=== PATIENT | male | born 1960 | race Caucasian/White ===

== ENCOUNTER 2020-05-11 12:55 | Outpatient (CLI) | payer BC, SELFPAY ==
[2020-05-11 13:42] LABS: SARS-CoV-2 Ag Positive (Negative)
== END 2020-05-11 12:56 | disposition home or self-care (01) ==
LOC: CHSLAB 12:58
PROVIDERS: PCP Internal Medicine; Visit Provider Internal Medicine
DX: U07.1 COVID-19 (principal)
CPT/HCPCS: 87426; C9803

== ENCOUNTER 2023-07-16 10:35 | Outpatient (CLI) | payer BC, SELFPAY ==
--- NOTE | ~2023-07-16 | US_ITS ---
EXAMINATION: US soft tissue lower back DATE: 07/16/2023 10:49 INDICATION: Left lower back mass for 40 years. TECHNIQUE: Multiple grayscale and Doppler ultrasound images of the lower back were obtained. COMPARISON: None FINDINGS: In the left lower back, there is a 4.2 x 1.6 x 4.8 cm hypoechoic subcutaneous mass. IMPRESSION: 1. 4.8 cm subcutaneous mass in left lower back. This may be a benign mass such as peripheral nerve sh eath tumor or sebaceous cyst. Malignancy is less likely. Ultrasound-guided core needle biopsy is roland mmended. Reviewed, dictated and finalized at location E. IMPRESSION: 1. 4.8 cm subcutaneous mass in left lower back. This may be a benign mass such as peripheral nerve sheath tumor or sebaceous cyst. Malignancy is less likely. Ultrasound-guided core needle biopsy is recommended.
== END 2023-07-16 10:36 ==
LOC: MICIMG 10:37
PROVIDERS: PCP Internal Medicine; Visit Provider Internal Medicine
DX: R22.2 Localized swelling, mass and lump, trunk (principal)
CPT/HCPCS: 76705

== ENCOUNTER 2023-09-16 15:52 | Outpatient (CLI) | payer BC, SELFPAY ==
[2023-09-16 19:28] LABS: Anion Gap 10 mmol/L (4-12); Blood Urea Nitrogen 12 mg/dL (9-20); Calcium 9.3 mg/dL (8.4-10.2); Carbon Dioxide 27 mmol/L (22-30); Chloride 101 mmol/L (98-107); Estimated Glomerular Filt Rate > 60; Glucose 96 mg/dL (65-110); Potassium 3.8 mmol/L (3.4-5.0); Sodium 138 mmol/L (137-145)
== END 2023-09-16 15:53 | disposition home or self-care (01) ==
LOC: ANHGOSHLAB 15:53
PROVIDERS: PCP Internal Medicine; Visit Provider Anesthesiology
DX: E11.9 Type 2 diabetes mellitus without complications (principal)
CPT/HCPCS: 36415; 80048

== ENCOUNTER 2023-09-20 00:37 | Day surgery (SDC) | payer BC, SELFPAY ==
[2023-09-16 08:46] VITALS: BMI 40.5
--- NOTE | 2023-09-16 08:52 | PC.NURSE ---
Report to the Outpatient Waiting Room, entrance under the green pavilion located off [facility], at time _1130_ on date _[id number]_. Planned Procedure Time: _130pm_. Time changes happen often and if your time is changed the preop area will call you the afternoon before. - You and your visitor will be asked to self-screen and do not enter if you have any COVID symptoms. - A mask is optional within the hospital at this time. Patients may have clear liquids (water, carbonated beverages, clear teas, apple juice) until 3 hours prior to surgery with a maximum of 20 ounces. - No food from midnight until time of surgery Take the following medications with a SIP of water the morning of surgery: __Amlodipine DO NOT STOP ANY OF YOUR OTHER PRESCRIPTION MEDICATIONS PRIOR TO SURGERY ?EXCEPT THE FOLLOWING Medications to discontinue per physician None Date to take last dose Please no make-up, nail vietnamese, hairspray, perfume, deodorant, or body powder the day of surgery. No jewelry (including any body piercings) or valuables the day of surgery, leave them at home. Please take a shower or bath the night before, or the morning of, surgery with an antibacterial soap. Wear comfortable, loose fitting clothing. - Jewelry must be removed prior to entering the operating room. Rings and piercings that are not removed may be cut off. - The hospital will not accept responsibility for valuables. - Please leave all valuables, including medications, at home the day of surgery. If you are going home after surgery, a licensed driver wheelchair must drive you home. - NO public transportation without another adult if you receive anesthesia. - We recommend that an adult stay with you for 24 hours following discharge. - We also recommend that you do not drive, make important decision, drink alcoholic beverages, or take any drugs that were not prescribed by your health care provider for at least 24 hours after your discharge time. Follow any additional instructions given to you from your surgeon. If you or anyone in your household have experienced Covid symptoms in the past week, please notify your surgeon or the nurse liaison at the phone number below for possible testing. Telephone instructions given to _Ayo___and asked if any additional questions and then verbalized understanding. Patient advised to call surgeon office or pre surgery nurse liaison [phone] if any additional questions.
[2023-09-20] VITALS (8 sets, daily range): BP systolic 146–174; BP diastolic 73–94; PULSE 80–94; RESP 14–20; TEMP 36.2–36.3; O2SAT 96–100
[2023-09-20] MEDS: LACTATED RINGERS 1,000 ML 30 ML IV CONT (10:30)
[2023-09-20 10:31] LABS: Glucose Point of Care 158 mg/dl (65-105)
--- NOTE | 2023-09-20 11:48 | PM.IMHP ---
H&P: HPI History of Present Illness Date/Time: 09/20/23 11:48 Chief Complaint: Back and arm masses Narrative: 62 yo man presents for excision of back and arm masses. He reports no changes since last seen in office. Review of Systems Review of Systems: All systems reviewed & are unremarkable except as noted in HPI and below Constitutional: Constitutional: Denies chills, Denies fever(s), Denies headache(s) and Denies weight loss Eyes: Eyes: Denies change in vision ENT: Denies dizziness, Denies headache(s), Denies neck mass and Denies throat swelling Cardiovascular: Cardiovascular: Denies chest pain, Denies lightheadedness and Denies dyspnea Respiratory: Respiratory: Denies cough, Denies dyspnea and Denies wheezing Gastrointestinal: Gastrointestinal: Denies abdominal pain, Denies change in bowel habits, Denies nausea and Denies vomiting Genitourinary: Genitourinary: Denies hematuria and Denies dysuria Musculoskeletal: Musculoskeletal: Reports as per HPI Integumentary/Breasts: Skin/Breast: Reports as per HPI Neurologic: Denies dizziness and Denies headache(s) Allergic/Immunologic: Allergic/Immunologic: Denies throat swelling and Denies wheezing [facility] Past Medical History Medical History (Updated 08/09/23 @ 09:41 by Fanny Benavidez) Hyperlipidemia Type 2 diabetes mellitus Family History Family History (Updated 08/09/23 @ 09:16 by Rima Ordonez MA) Mother Diabetes mellitus Social History Social History (Updated 08/09/23 @ 09:16 by Rima Ordonez MA) Smoking packs per day: 1 Smoking cigarettes per day: 20.0 Years smoked: 30 Smoking pack-years: 30.00 Smoking status: Former smoker Tobacco type: cigarettes Smoking end date: 09/15/10 Alcohol intake: current Drinks per week: 12 Do You Feel Safe in your Home?: Yes Lack of Transportation: No Lack of Food: Never True Current Housing: I Have Housing Concerned About Future Housing: No Difficulty Paying Gas/Electric Bills: No Difficulty Paying for Meds: No Currently Unemployed: No Education: Trade/Vocational Certificate Difficulty w/ Childcare or Family Care: No Living arrangements: with family Spiritual care concerns: No Meds Home Medications and Allergies Home Medications Medication Instructions Recorded Confirmed Type amlodipine 5 mg tablet 5 mg PO DAILY 08/09/23 09/20/23 History atorvastatin 40 mg tablet 40 mg PO DAILY 08/09/23 09/16/23 History cetirizine 10 mg tablet 10 mg PO DAILY PRN Allergy Symptoms 08/09/23 09/16/23 History dulaglutide 4.5 mg/0.5 mL 4.5 mg subcut WEEKLY 08/09/23 09/16/23 History subcutaneous pen injector glimepiride 4 mg tablet 4 mg PO QAM 08/09/23 09/16/23 History losartan 50 mg-hydrochlorothiazide 1 tablet PO DAILY 08/09/23 09/16/23 History 12.5 mg tablet sildenafil 100 mg tablet 100 mg PO DAILY PRN Sexual Activity 08/09/23 09/16/23 History Allergies Allergy/AdvReac Type Severity Reaction Status Date / Time No Known Allergies Allergy Verified 09/20/23 10:38 Vital Signs Vital Signs - 24 hr 09/20/23 10:30 Temperature 36.3 C L Pulse Rate 85 Respiratory Rate 14 Blood Pressure 156/77 H Pulse Oximetry 98 Oxygen Delivery Room Air Exam Const: General: no acute distress and alert Orientation/consciousness: patient oriented x3 HENMT: Head: normocephalic and atraumatic Ears: hearing grossly normal bilaterally Face/Nose/Sinus: Normal nares present Mouth: Yes Normal oral and palatal mucosa present Eyes: Periorbital: periorbital findings normal Sclera: sclerae normal EOM: EOMs intact bilaterally Neck: Neck: normal visual inspection, no lymphadenopathy and trachea midline Chest: Chest palpation & inspection: normal inspection of the chest Resp: Effort & Inspection: normal respiratory effort Auscultation: clear to auscultation bilaterally Cardio: Jugular venous distension: no JVD Rate: regular rate Rhythm: regular rhythm Heart sounds:
--- NOTE | 2023-09-20 11:49 | WPDANESEPPF ---
Anes - Initial Pre Proc Eval Procedure: Operation Date: 09/20/23 12:00 Proposed Procedures p Excision of Left Back Mass and Left Arm Mass - Sanju Aponte DO Date/Time: 09/20/23 11:49 Surgeon: Sanju Aponte DO Pre Op Diagnosis: 5cm Lt Back Mass, 3cm, 1cm Left Arm Mass Patient Data Age: 62 Gender: M Height: 1.8 m Weight: 135 kg Last Vital Signs Temp 97.4 F L 09/20/23 10:30 Pulse 85 09/20/23 10:30 Resp 14 09/20/23 10:30 BP 156/77 H 09/20/23 10:30 Pulse Ox 98 09/20/23 10:30 O2 Del Method Room Air 09/20/23 10:30 Allergies Allergy/AdvReac Type Severity Reaction Status Date / Time No Known Allergies Allergy Verified 09/20/23 10:38 Home Medications Medication Instructions Recorded Confirmed Type amlodipine 5 mg tablet 5 mg PO DAILY 08/09/23 09/20/23 History atorvastatin 40 mg tablet 40 mg PO DAILY 08/09/23 09/16/23 History cetirizine 10 mg tablet 10 mg PO DAILY PRN Allergy Symptoms 08/09/23 09/16/23 History dulaglutide 4.5 mg/0.5 mL 4.5 mg subcut WEEKLY 08/09/23 09/16/23 History subcutaneous pen injector glimepiride 4 mg tablet 4 mg PO QAM 08/09/23 09/16/23 History losartan 50 mg-hydrochlorothiazide 1 tablet PO DAILY 08/09/23 09/16/23 History 12.5 mg tablet sildenafil 100 mg tablet 100 mg PO DAILY PRN Sexual Activity 08/09/23 09/16/23 History Laboratory Tests 09/20/23 10:27 POC Capillary Glucose 158 H mg/dl (65-105) Patient hx anesthesia problems: none Family hx anesthesia problems: none Results Review: All pre-operative results and documents have been reviewed as part of the pre-operative evaluation. [facility] Past Medical History Medical History Hyperlipidemia Type 2 diabetes mellitus Family History Family History Mother Diabetes mellitus Social History Social History Smoking packs per day: 1 Smoking cigarettes per day: 20.0 Years smoked: 30 Smoking pack-years: 30.00 Smoking status: Former smoker Tobacco type: cigarettes Smoking end date: 09/15/10 Alcohol intake: current Drinks per week: 12 Do You Feel Safe in your Home?: Yes Lack of Transportation: No Lack of Food: Never True Current Housing: I Have Housing Concerned About Future Housing: No Difficulty Paying Gas/Electric Bills: No Difficulty Paying for Meds: No Currently Unemployed: No Education: Trade/Vocational Certificate Difficulty w/ Childcare or Family Care: No Living arrangements: with family Spiritual care concerns: No Anes - Eval Final PreProcedure Day of Procedure 09/20/23 11:49 Patient weight: morbidly obese Heart: regular rate and rhythm Lungs: clear to auscultation Airway: Mallampati scale and special considerations (Pt has large chip on R upper incisor. ) Neurological: alert and oriented Last oral intake: >/= 8 hours ASA classification: III Emergent: no Anesthetic plan: proceed Anesthesia type and monitoring: general ETT and standard monitoring Results Review: All pre-operative results and documents have been reviewed as part of the pre-operative evaluation. HTN, hyperlipidemia, DM, (fsbs 158), suspect ROXI, pt apparently golfs, no cp or sob. Informed Consent: The patient's anesthetic plan and its attendant risks and benefits were discussed with the patient/family/POA. Questions were solicited and answers provided to the satisfaction of the patient/family/POA.
--- NOTE | 2023-09-20 11:51 | WPDHPUPDATE1 ---
History and Physical Update Update Date/Time: 09/20/23 11:51 History and Physical has been reviewed, including an updated exam of the patient. There are NO changes in the patient's condition. Risks, benefits, and alternatives have been discussed and questions answered. Patient agrees to proceed with procedure.
[2023-09-20] MEDS: LIDO 1%/EPINEPHRINE 1:100,000 50 ML VIAL INFILTRATE (12:27)
--- NOTE | 2023-09-20 13:10 | W.PM.PROC2 ---
Procedure Note - Detailed Date of Procedure 09/20/23 Pre-op Diagnosis Left back mass, left arm mass x2 Post-op Diagnosis Same (8 cm left back mass, 3 cm left arm mass, 1 cm left arm mass) Procedure Performed 1. Excision of 8 cm left back mass 2. Excision of 3 cm left arm mass 3. Excision of 1 cm left arm mass Surgeon Sanju Aponte, DO Anesthesia General and Local (1% lidocaine with epinephrine) Indications This is a 62-year-old man who presents with multiple masses. He noticed a lower back mass about 30+ years ago but more recently this has become slightly larger and it is causing some discomfort when he is leaning up against it. He also experienced 2 masses on his left shoulder region on the upper arm. He has had drainage from those masses in the past but denies any current infection or active drainage. The mass on the back was ultrasounded and this appeared to be a benign subcutaneous mass possibly a cyst or nerves sheath tumor. The masses on the shoulder appeared likely to be subcutaneous cyst. Discussions were made with the patient about treatment options and decision was made to proceed with excision of the left back mass and left arm mass x2. Findings Excision of 8 cm left back mass was performed. An elliptical incision was made to encompass any area involving the skin superficially. The mass was firm and wide margins were taken just in case this was a neoplasm. Total width of the mass was 8 cm with margins. Excision of the 3 cm and 1 cm left arm mass was performed. Each of these were excised separately with a separate incision. These appeared to be subcutaneous cysts. Both were completely excised and sent to the lab for pathology as well. The back mass was oriented with a short suture superior and long suture lateral. Description of Procedure Procedure as well as risks, benefits, and alternatives were discussed with the patient. Written consent was obtained and placed in chart prior to procedure. Patient was brought back to surgical suite. He was placed supine on operating table. Time-out was done to confirm patient and procedure. He was then intubated by the anesthesia department. He was then repositioned into right lateral decubitus position. His back and shoulder area were prepped and draped in sterile fashion using chlorhexidine prep. 1% lidocaine with epinephrine was infiltrated locally around each of the masses. An 8 cm elliptical incision was made on the left lower back mass transversely using a 15 blade scalpel. Electrocautery was then used for hemostasis and for dissection around the mass. A wide excision was performed to completely excised the mass. The mass was completely excised intact and then was oriented with sutures once excised. A short suture was placed superiorly and long suture laterally. The mass was then sent to the lab for pathology. The wound bed was then inspected. Hemostasis was achieved with electrocautery. The skin edges were then reapproximated using 3-0 nylon vertical mattress interrupted sutures. Bacitracin ointment was applied followed by 4 x 4 gauze and tape. I then moved my attention to the left upper arm masses. A 3 cm elliptical incision was made around the larger left upper arm mass using a 15 blade scalpel. The mass was sharply excised with the 15 blade scalpel and removed completely. Electrocautery was used for hemostasis. The skin edges were then reapproximated using 3-0 nylon simple interrupted sutures. A 1 cm elliptical incision was then made around the 1 cm left upper arm mass using a 15 blade scalpel. the mass was completely excised with the 15 blade scalpel and sent to the lab for pathology. Hemostasis was achieved with electrocautery. The skin edges were then reapproximated using 3-0 nylon simple interrupted sutures. Bacitracin ointment was then applied over each of these incisions followed by 4 x 4 gauze and Medipore tape. The patient was then awakened from anesthesia and t
[2023-09-20 13:29] LABS: Glucose Point of Care 112 mg/dl (65-105)
== END 2023-09-20 14:39 | disposition home or self-care (01) ==
PROVIDERS: PCP Internal Medicine; Visit Provider Surgery
PROC: (CPT 11406; principal; 2023-09-20 12:00)
DX: L72.0 Epidermal cyst (principal); E78.5 Hyperlipidemia, unspecified; E11.9 Type 2 diabetes mellitus without complications; Z87.891 Personal history of nicotine dependence
CPT/HCPCS: 11406; 11403; 11401; 82948; 88304; A9270; J2250; J2405; J2704; J3010; J7120

== ENCOUNTER 2023-10-06 15:59 | Emergency (ER) | payer BC, SELFPAY ==
--- NOTE | 2023-10-06 16:17 | ED.GENADULT ---
HPI - General Adult General Chief complaint: Skin/Abscess/Foreign Body Stated complaint: WOUND CHECK TO LOWER BACK Source: patient, RN notes reviewed and old records reviewed Mode of arrival: ambulatory Limitations: no limitations History of Present Illness HPI narrative: patient presents accompanied by his . Patient had surgery on lower back to excise the lesion. Followed with Dr. Alvarez on Saturday to have sutures removed. He was doing fine until this afternoon at approximately 3:30 a.m. when he went to play golf. The wound dehisced at the site of the Steri-Strips. Patient now has gaping wound, no active bleeding Related Data Home Medications Medication Instructions Recorded Confirmed amlodipine 5 mg tablet 5 mg PO DAILY 08/09/23 10/06/23 atorvastatin 40 mg tablet 40 mg PO DAILY 08/09/23 10/06/23 cetirizine 10 mg tablet 10 mg PO DAILY PRN Allergy Symptoms 08/09/23 10/06/23 dulaglutide 4.5 mg/0.5 mL 4.5 mg subcut WEEKLY 08/09/23 10/06/23 subcutaneous pen injector glimepiride 4 mg tablet 4 mg PO QAM 08/09/23 10/06/23 losartan 50 mg-hydrochlorothiazide 1 tablet PO DAILY 08/09/23 10/06/23 12.5 mg tablet sildenafil 100 mg tablet 100 mg PO DAILY PRN Sexual Activity 08/09/23 10/06/23 Allergies Allergy/AdvReac Type Severity Reaction Status Date / Time No Known Allergies Allergy Verified 10/06/23 16:09 Review of Systems Review of Systems: All systems reviewed & are unremarkable except as noted in HPI and below Constitutional: Constitutional: Reports no additional constitutional complaints ENT: Reports system reviewed and no additional complaints, except as documented Cardiovascular: Cardiovascular: Reports no additional cardiovascular complaints Respiratory: Respiratory: Reports no additional respiratory complaints Gastrointestinal: Gastrointestinal: Reports no additional gastrointestinal complaints Integumentary/Breasts: Comments: open surgical wound to lower back PMFSH Past Medical History Medical History Hyperlipidemia Type 2 diabetes mellitus Surgical History Surgical History H/O excision of mass 09/20/2023 - excision 8cm left back mass, excision 3cm left arm mass, and excision of 1cm left arm mass Family History Family History Mother Diabetes mellitus Social History Social History Smoking packs per day: 1 Smoking cigarettes per day: 20.0 Years smoked: 30 Smoking pack-years: 30.00 Smoking status: Former smoker Tobacco type: cigarettes Smoking end date: 09/15/10 Alcohol intake: current Drinks per week: 12 Do You Feel Safe in your Home?: Yes Lack of Transportation: No Lack of Food: Never True Current Housing: I Have Housing Concerned About Future Housing: No Difficulty Paying Gas/Electric Bills: No Difficulty Paying for Meds: No Currently Unemployed: No Education: Trade/Vocational Certificate Difficulty w/ Childcare or Family Care: No Living arrangements: with family Spiritual care concerns: No Comments At the time of my signature, I reviewed and agree with the nursing past medical, surgical, social, and family history. There is no relevant family history pertinent to the patient complaint. Exam Const: General: cooperative, no acute distress, alert and awake Orientation/consciousness: oriented to person, oriented to place and oriented to time HENMT: Head: normal to inspection Resp: Effort & Inspection: normal respiratory effort and able to speak in complete sentences Auscultation: clear to auscultation bilaterally, no crackles, no rales, no rhonchi and no wheezes Cardio: Palpation: normal PMI Rate: regular rate Rhythm: regular rhythm Heart sounds: S1 normal heart sound present and S2 normal heart sound pres
[2023-10-06 16:20] VITALS: BP 192/90; PULSE 104; RESP 16; TEMP 37.2; O2SAT 98
[2023-10-06 17:35] VITALS: BP 176/155
[2023-10-06 18:08] VITALS: BP 162/90
== END 2023-10-06 18:03 | disposition home or self-care (01) ==
PROVIDERS: Emergency Provider Nurse Practitioner Family; PCP Internal Medicine
DX: T81.31XA Disruption of external operation (surgical) wound, not elsewhere classified, initial encounter (principal); Z87.891 Personal history of nicotine dependence; E78.5 Hyperlipidemia, unspecified; E11.9 Type 2 diabetes mellitus without complications
CPT/HCPCS: 99212; G0463

== ENCOUNTER 2023-10-08 02:00 | Day surgery (SDC) | payer BC, SELFPAY ==
--- NOTE | 2023-10-07 13:30 | PC.NURSE ---
Report to the Outpatient Waiting Room, entrance under the green pavilion located off [facility], at time _1000__ on date 10/08/23_. Planned Procedure Time: . Time changes happen often and if your time is changed the preop area will call you the afternoon before. - You and your visitor will be asked to self-screen and do not enter if you have any COVID symptoms. - A mask is optional within the hospital at this time. Patients may EAT AND DRINK PRIOR TO ARRIVE. Take the following medications with a SIP of water the morning of surgery: _MORNING MEDICATIONS DO NOT STOP ANY OF YOUR OTHER PRESCRIPTION MEDICATIONS PRIOR TO SURGERY ?EXCEPT THE FOLLOWING Medications to discontinue per physician NONE Date to take last dose Please no make-up, nail portuguese, hairspray, perfume, deodorant, or body powder the day of surgery. No jewelry (including any body piercings) or valuables the day of surgery, leave them at home. Please take a shower or bath the night before, or the morning of, surgery with an antibacterial soap. Wear comfortable, loose fitting clothing. Children are encouraged to wear pajamas. - Jewelry must be removed prior to entering the operating room. Rings and piercings that are not removed may be cut off. - The hospital will not accept responsibility for valuables. - Please leave all valuables, including medications, at home the day of surgery. If you are going home after surgery, a licensed bulk delivery driver must drive you home. - NO public transportation without another adult if you receive anesthesia. - We recommend that an adult stay with you for 24 hours following discharge. - We also recommend that you do not drive, make important decision, drink alcoholic beverages, or take any drugs that were not prescribed by your health care provider for at least 24 hours after your discharge time. For Pediatric surgeries, we recommend two adults accompany the child home. Follow any additional instructions given to you from your surgeon. If you or anyone in your household have experienced Covid symptoms in the past week, please notify your surgeon or the nurse liaison at the phone number below for possible testing. Telephone instructions given to PATIENT__and asked if any additional questions and then verbalized understanding. Patient advised to call surgeon office or pre surgery nurse liaison [phone] if any additional questions.
--- NOTE | 2023-10-08 10:11 | WPDHPUPDATE1 ---
History and Physical Update Update Date/Time: 10/08/23 10:11 History and Physical has been reviewed, including an updated exam of the patient. There are NO changes in the patient's condition. Risks, benefits, and alternatives have been discussed and questions answered. Patient agrees to proceed with procedure.
[2023-10-08 10:20] VITALS: BMI 41.7
[2023-10-08 10:23] VITALS: BP 142/71; PULSE 75; RESP 18; TEMP 36.4; O2SAT 98
[2023-10-08 10:35] VITALS: BP 131/60; PULSE 76; RESP 16; O2SAT 95
[2023-10-08 10:45] VITALS: BP 109/53; PULSE 72; RESP 16; O2SAT 95
[2023-10-08] MEDS: BUPIVACAINE/EPINEPHRINE 0.5% 50 ML VIAL 30 ML INFILTRATE (10:45)
[2023-10-08 10:55] VITALS: BP 100/56; PULSE 72; RESP 16; O2SAT 93
[2023-10-08] MEDS: BACITRACIN OINTMENT 15 GM TUBE 1 APPLIC TOPICAL (10:58)
--- NOTE | 2023-10-08 11:16 | W.PM.PROC2 ---
Procedure Note - Detailed Date of Procedure 10/08/23 Pre-op Diagnosis Dehiscence of Back Wound Post-op Diagnosis Same Procedure Performed Delayed closure of 8 cm back wound dehiscence Surgeon Sanju Aponte, DO Anesthesia Local (1% lidocaine with epinephrine) Indications This is a 62-year-old man who presented with a wound after undergoing excision of a large back cyst. He had healed well and sutures were removed at 2 weeks. Over the weekend he was playing golf and noticed the wound opened up and began bleeding. He went to urgent care and was found to have a dehiscence of the wound at the skin. Patient was then seen back in the office and decision was made to proceed with delayed closure of 8 cm back wound dehiscence. Findings The wound from the previous cyst excision was opened for length of about 8 cm. The tissue within the subcutaneous region appeared healthy and viable with no signs of infection. The wound was irrigated with sterile saline. Cauterization was used to help with granulation and control any mild bleeding. The wound was then closed using 3-0 nylon vertical mattress interrupted sutures. Description of Procedure Procedure as well as risks, benefits, and alternatives were discussed with the patient. Written consent was obtained and placed in chart prior to procedure. Patient was brought back to surgical suite. He was placed right lateral position on operating table. Time-out was done to confirm patient and procedure. His back area was then prepped and draped in sterile fashion using Betadine prep. 1% lidocaine with epinephrine was infiltrated locally around the. The wound was then irrigated with sterile saline. The wound was carefully inspected for any underlying signs of infection. Hemostasis was then achieved with electrocautery. The skin edges were then reapproximated using 3-0 nylon vertical mattress interrupted sutures. A total of 10 sutures were placed to approximate the skin edges. Bacitracin ointment was then applied followed by 4 x 4 gauze and Medipore tape. The patient was then transferred to recovery. Estimated Blood Loss 2 Complications No immediate complications Condition Stable Disposition Same day [facility] Billing Surgery - Charge Forward: Surgery Billing
== END 2023-10-08 11:20 | disposition home or self-care (01) ==
PROVIDERS: PCP Internal Medicine; Visit Provider Surgery
PROC: (CPT 12020; principal; 2023-10-08 11:00)
DX: T81.31XA Disruption of external operation (surgical) wound, not elsewhere classified, initial encounter (principal); Y83.8 Other surgical procedures as the cause of abnormal reaction of the patient, or of later complication, without mention of misadventure at the time of the procedure; E11.9 Type 2 diabetes mellitus without complications; E78.5 Hyperlipidemia, unspecified; Z87.891 Personal history of nicotine dependence; Z79.85 Long-term (current) use of injectable non-insulin antidiabetic drugs; Z79.84 Long term (current) use of oral hypoglycemic drugs
CPT/HCPCS: 12020; A9270

== ENCOUNTER 2024-02-24 14:51 | Outpatient (CLI) | payer BC, SELFPAY ==
--- NOTE | ~2024-02-24 | XR_ITS ---
Clinical Indication: Cough PA and lateral views of the chest: Comparison: 04/03/2017 Findings: The lungs are clear, without evidence of focal consolidation or pleural effusion. Cardiome diastinal silhouette is within normal limits. Bones and soft tissues are unremarkable. Impression: Normal chest. Reviewed, dictated and finalized at [facility]. ET PROFESSOR Impression: Normal chest.
[2024-02-24 15:18] LABS: Hematocrit 45.1 % (40.0-54.0); Mean Corpuscular HGB Conc 33.3 g/dL (32-36); Mean Corpuscular Hemoglobin 28.4 pg (27.0-31.0); Mean Corpuscular Volume 85.4 fL (78.0-102.0); Mean Platelet Volume 8.2 fl (8.7-11.0); Platelet Count Result 470 K/mm3 (150-420); Red Blood Count 5.28 M/mm3 (4.70-6.10); Red Cell Distribution Width 12.5 % (11.6-14.4); White Blood Count 8.7 K/mm3 (4.8-10.8)
[2024-02-24 15:42] LABS: Anion Gap 7 mmol/L (4-12); Blood Urea Nitrogen 14 mg/dL (7-18); Calcium 10.1 mg/dL (8.5-10.1); Carbon Dioxide 31 mmol/L (21-32); Chloride 98 mmol/L (98-108); Estimated Glomerular Filt Rate > 60; Glucose 327 mg/dL (70-99); Osmolality Calculated 295 mOsm/kg (285-295); Potassium 3.8 mmol/L (3.5-5.1); Sodium 136 mmol/L (136-145)
== END 2024-02-24 14:52 | disposition home or self-care (01) ==
LOC: CHSLAB 14:53
PROVIDERS: PCP Internal Medicine; Visit Provider Nurse Practitioner Family
DX: R05.1 Acute cough (principal); R53.83 Other fatigue
CPT/HCPCS: 36415; 71046; 80048; 85027

== ENCOUNTER 2025-02-08 01:04 | Day surgery (SDC) | payer OTHER, SELFPAY ==
[2025-01-25 13:23] VITALS: BMI 41.9
--- OUTSIDE RECORDS SUMMARY | 2025-02-08 01:07 | XMS_ITS | Clinical Summary ---
Author Organization [facility] Address [address] [address] Phone Care Team Providers Care Community Associate Name Role Phone Stephanie Echeverria MD Primary Care Provider [phone] Allergies No known active allergies Medications polyethylene glycol (MIRALAX) Powder Mix the entire bottle with 64 oz of a clear liquid. Use as directed by the office for colonoscopy prep. 255 g 0 6 Active lovastatin (MEVACOR) 20 MG Tablet Take 20 mg by mouth every morning. Active IBUPROFEN PO Take by mouth as needed. Active metFORMIN (GLUCOPHAGE) 500 MG Tablet Take 500 mg by mouth every morning. Active LOSARTAN POTASSIUM PO Take 12.5 mg by mouth every morning. Active Active Problems No known active problems Family History Medical History Relation Name Comments Cancer Brother Prostate Cancer Father esophageal Dementia Mother Relation Name Status Comments Brother Father Mother Alive Social History Tobacco Use Types Packs/Day Years Used Date Smoking Tobacco: Former Cigarettes 1 40 0 05/31/1970 - 05/31/2010 Smokeless Tobacco: Never Alcohol Use Standard Drinks/Week Comments Yes 0 (1 standard drink = 0.6 oz pur e alcohol) a few a week Sex and Gender Information Value Date Recorded Sex Assigned at Not on file Legal Sex Male 9:36 PM CDT Gender Identity Not on file Sexual Orientation Not on file 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 Not on file Not on file Last Filed Vital Signs Vital Sign Reading Time Taken Comments Blood Pressure 135/88 06/01/2019 6:27 AM CDT Pulse 74 06/01/2019 6:27 AM CDT Temperature 36 C (96.8 F) 06/01/2019 6:27 AM CDT Respiratory Rate 18 06/01/2019 6:27 AM CDT Oxygen Saturation 99% 06/01/2019 6:27 AM CDT Inhaled Oxygen Concentration - - Weight 124.7 kg (275 lb) 05/08/2019 9:00 AM LAB ANIMAL TECHNICIAN Height 177.8 cm (5' 10) 05/08/2019 9:00 AM LAB ANIMAL TECHNICIAN Body Mass Index 39.46 05/08/2019 9:00 AM LAB ANIMAL TECHNICIAN Plan of Treatment Health Maintenance Due Date Last Done Comments Hepatitis C Virus (HCV) Screening 1960 Cologuard 2005 Immunochemical Fecal Occult Blood 2005 Pneumococcal Immunization (50+ years) (2 of 2 - PCV20 or PCV21) 02/03/2016 02/02/2015 Colonoscopy 05/31/2024 06/01/2019, 12/24, 09/20/2014 Colorectal Cancer Screening 05/31/2024 Influenza Immunization (#1) 11/23/202409/2017, 12/20/2016, 12/14/2015, Additional history exists SARS-COV-2 Immunization ( - season) 2024 03/22/2021, 06/30/2020 Respiratory Syncytial Virus (RSV) Immunization (Adult) (1 - 1-dose 75+ series) 11/04/2035 Pneumococcal Immunization Combined Discontinued 02/02/2015 DTaP/Tdap/Td Immunization Discontinued 01/29/2018 TdaP Immunization Completed 01/29/2018 Zoster Immunization Completed 04/08/2019, 9 Hepatitis B Immunization Aged Out No longer eligible based on patient's age to complete this topic Human Papillomavirus (HPV) Immunization Aged Out No longer eligible based on patient's age to complete this topic Meningococcal Immunization (ACWY) Aged Out No longer eligible based on patient's age to complete this topic Rotavirus Immunization Aged Out No lo nger eligible based on patient's age to complete this topic Procedures Procedure Name Priority Date/Time Associated Diagnosis Comments HM COLONOSCOPY Routine 09/20/2014 from Last 3 Months or Most Recently Relevant to Health Maintenance Results * HM COLONOSCOPY (09/20/2014) us Stephanie Echeverria MD PROCEDURE/MINOR SURGICAL PARMJIT LEMOS Final Result from Last 3 Months or Most Recently Relevant to Health Maintenance Insurance [facility] Care Teams Community Associate Relationship Specialty Start Date End Date Stephanie Echeverria MD [address] [place] [address] PCP - General Internal Medicine 01/16/16
[2025-02-08 06:21] VITALS: BP 159/76; PULSE 71; RESP 18; TEMP 36.1; O2SAT 97
[2025-02-08] MEDS: LACTATED RINGERS 1,000 ML 150 ML IV CONT (06:32)
--- NOTE | 2025-02-08 06:52 | WPDANESEPPF ---
Anes - Initial Pre Proc Eval Procedure: Operation Date: 02/08/25 07:30 Proposed Procedures p Screening Colonoscopy - Sanju Aponte DO Date/Time: 02/08/25 06:52 Surgeon: Sanju Aponte DO Pre Op Diagnosis: Neoplasm screening Patient Data Age: 64 Gender: M Height: 1.8 m Weight: 136.4 kg Last Vital Signs Temp 36.1 C L 02/08/25 06:21 Pulse 71 02/08/25 06:21 Resp 18 02/08/25 06:21 BP 159/76 H 02/08/25 06:21 Pulse Ox 97 02/08/25 06:21 O2 Del Method Room Air 02/08/25 06:21 Allergies Allergy/AdvReac Type Severity Reaction Status Date / Time No Known Allergies Allergy Verified 02/08/25 06:18 Home Medications ?Medication ?Instructions ?Recorded ?Confirmed ?Type atorvastatin 40 mg tablet 40 mg PO DAILY 08/09/23 02/08/25 History cetirizine 10 mg tablet 10 mg PO DAILY PRN Allergy Symptoms 08/09/23 02/08/25 History dulaglutide 4.5 mg/0.5 mL 4.5 mg subcut WEEKLY 08/09/23 02/08/25 History subcutaneous pen injector Held on 02/08/25. Instructions: Order Change glimepiride 4 mg tablet 4 mg PO QAM 08/09/23 02/08/25 History sildenafil 100 mg tablet 100 mg PO DAILY PRN Sexual Activity 08/09/23 01/25/25 History insulin glargine-yfgn 100 unit/mL 50 unit subcut DAILY 01/25/25 02/08/25 History (3 mL) subcutaneous pen (Semglee (insulin glargine-yfgn) Pen) insulin lispro 100 unit/mL 25 unit subcut TIDWM 01/25/25 02/08/25 History subcutaneous pen losartan 50 mg tablet 12.5 mg PO DAILY 01/25/25 02/08/25 History Laboratory Tests 02/08/25 06:29 POC Capillary Glucose 166 H mg/dl (65-105) Patient hx anesthesia problems: none Family hx anesthesia problems: none Results Review: All pre-operative results and documents have been reviewed as part of the pre-operative evaluation. [facility] Past Medical History Medical History (Updated 02/07/25 @ 08:50 by Timmy Chauhan DO) HTN (hypertension) Hyperlipidemia Type 2 diabetes mellitus Surgical History Surgical History Wound dehiscence, surgical 10/08/23 Delayed closure of 8 cm back wound dehiscence H/O excision of mass 09/20/2023 - excision 8cm left back mass, excision 3cm left arm mass, and excision of 1cm left arm mass Family History Family History Mother Diabetes mellitus Social History Social History Smoking packs per day: 1 Smoking cigarettes per day: 20.0 Years smoked: 30 Smoking pack-years: 30.00 Smoking status: Former smoker Tobacco type: cigarettes Smoking end date: 09/15/10 Alcohol intake: current Drinks per week: 20 Alcohol use details: Beer Substance use: never Substance use type: does not use Do You Feel Safe in your Home?: Yes Lack of Transportation: No Lack of Food: Never True Current Housing: I Have Housing Concerned About Future Housing: No Difficulty Paying Gas/Electric Bills: No Difficulty Paying for Meds: No Currently Unemployed: No Education: Trade/Vocational Certificate Difficulty w/ Childcare or Family Care: No Living arrangements: with family Spiritual care concerns: No Anes - Eval Final PreProcedure Day of Procedure 02/08/25 06:52 Patient weight: morbidly obese Heart: regular rate and rhythm Lungs: clear to auscultation Airway: Mallampati scale class III Neurological: alert and oriented Last oral intake: >/= 8 hours ASA classification: III Emergent: no Anesthetic plan: proceed Anesthesia type and monitoring: general GIVS and standard monitoring Results Review: All pre-operative results and documents have been reviewed as part of the pre-operative evaluation. Informed Consent: The patient's anesthetic plan and its attendant risks and benefits were discussed with the patient/family/POA. Questions were solicited and answers provided to the satisfaction of the patient/family/POA.
--- NOTE | 2025-02-08 07:29 | PM.IMHP ---
H&P: HPI History of Present Illness Date/Time: 02/08/25 07:29 Chief Complaint: Screening for colorectal cancer Narrative: this is a 64-year-old man presents for colonoscopy. Last colonoscopy was 6 years ago or so. He denies any hematochezia or melena. He denies any family history of colon cancer. Review of Systems Review of Systems: All systems reviewed & are unremarkable except as noted in HPI and below Constitutional: Constitutional: Denies chills, Denies fever(s), Denies headache(s) and Denies weight loss Eyes: Eyes: Denies change in vision ENT: Denies dizziness, Denies headache(s), Denies neck mass and Denies throat swelling Cardiovascular: Cardiovascular: Denies chest pain, Denies lightheadedness and Denies dyspnea Respiratory: Respiratory: Denies cough, Denies dyspnea and Denies wheezing Gastrointestinal: Gastrointestinal: Denies abdominal pain, Denies change in bowel habits, Denies nausea and Denies vomiting Genitourinary: Genitourinary: Denies hematuria and Denies dysuria Musculoskeletal: Musculoskeletal: Reports as per HPI Integumentary/Breasts: Skin/Breast: Reports as per HPI Neurologic: Denies dizziness and Denies headache(s) Allergic/Immunologic: Allergic/Immunologic: Denies throat swelling and Denies wheezing [facility] Past Medical History Medical History (Updated 02/08/25 @ 07:30 by Sanju Aponte DO) HTN (hypertension) Hyperlipidemia Type 2 diabetes mellitus Surgical History Surgical History Wound dehiscence, surgical 10/08/23 Delayed closure of 8 cm back wound dehiscence H/O excision of mass 09/20/2023 - excision 8cm left back mass, excision 3cm left arm mass, and excision of 1cm left arm mass Family History Family History Mother Diabetes mellitus Social History Social History Smoking packs per day: 1 Smoking cigarettes per day: 20.0 Years smoked: 30 Smoking pack-years: 30.00 Smoking status: Former smoker Tobacco type: cigarettes Smoking end date: 09/15/10 Alcohol intake: current Drinks per week: 20 Alcohol use details: Beer Substance use: never Substance use type: does not use Do You Feel Safe in your Home?: Yes Lack of Transportation: No Lack of Food: Never True Current Housing: I Have Housing Concerned About Future Housing: No Difficulty Paying Gas/Electric Bills: No Difficulty Paying for Meds: No Currently Unemployed: No Education: Trade/Vocational Certificate Difficulty w/ Childcare or Family Care: No Living arrangements: with family Spiritual care concerns: No Meds Home Medications and Allergies Home Medications ?Medication ?Instructions ?Recorded ?Confirmed ?Type atorvastatin 40 mg tablet 40 mg PO DAILY 08/09/23 02/08/25 History cetirizine 10 mg tablet 10 mg PO DAILY PRN Allergy Symptoms 08/09/23 02/08/25 History dulaglutide 4.5 mg/0.5 mL 4.5 mg subcut WEEKLY 08/09/23 02/08/25 History subcutaneous pen injector Held on 02/08/25. Instructions: Order Change glimepiride 4 mg tablet 4 mg PO QAM 08/09/23 02/08/25 History sildenafil 100 mg tablet 100 mg PO DAILY PRN Sexual Activity 08/09/23 01/25/25 History insulin glargine-yfgn 100 unit/mL 50 unit subcut DAILY 01/25/25 02/08/25 History (3 mL) subcutaneous pen (Semglee (insulin glargine-yfgn) Pen) insulin lispro 100 unit/mL 25 unit subcut TIDWM 01/25/25 02/08/25 History subcutaneous pen losartan 50 mg tablet 12.5 mg PO DAILY 01/25/25 02/08/25 History Allergies Allergy/AdvReac Type Severity Reaction Status Date / Time No Known Allergies Allergy Verified 02/08/25 06:18 Vital Signs Vital Signs - 24 hr 02/08/25 06:21 Temperature 96.9 F L Pulse Rate 71 Respiratory Rate 18 Blood Pressure 159/76 H Pulse Oximetry 97 Oxygen Delivery Room Air Exam Const: General: no acute distress and alert Orientation/consciousness: patient oriented x3 HENMT: Head: normocephalic and atraumatic Ears: hearing grossly normal bilaterally Face/Nose/Sinus: Normal nares present Mouth: Yes Normal oral and palatal mucosa present Eyes: Periorbital: periorbital findings normal Sclera: sclerae normal EOM: EOMs intact bilaterally Neck: Neck: normal visual inspection, no lymphadenopathy and trachea midline Chest: Chest palpation & inspection: normal inspection of the chest Resp: Effort & Inspection: normal respiratory effort Auscultation: clear to auscultation bilaterally Cardio: Jugular venous distension: no JVD Rate: regular rate Rhythm: regular rhythm Heart sounds: S1 normal heart sound present and S2 normal heart sound present Peripheral pulses: Peripheral pulses 2+ throughout GI: Inspection: normal to inspection GI Palp: Yes Soft to palpation, No Tenderness to palpation present (GI), No Guarding due to palpation present (GI) and No Rebound tenderness present Percussion: Yes normal to percussion Auscultation: normal bowel sounds : General: Yes no CVA tenderness Back/Spine/Pelvis: Back: no CVA tenderness Neuro: General: patient oriented x3, no focal motor deficits and CN's II-XI intact bilaterally Cognition (Neuro): normal cognition Speech: normal speech Motor exam (neuro): 5/5 motor strength present throughout Extrem: General: capillary refill normal and no clubbing, cyanosis or edema Assessment and Plan Assessment and plan (1) Screening for colorectal cancer: Code(s): Z12.11 - Encounter for screening for malignant neoplasm of colon; Z12.12 - Encounter for screening for malignant neoplasm of rectum Status: Acute Assessment and Plan: I have recommended colonoscopy. I have discussed the procedure, risks, benefits, and alternatives. Questions were answered. Patient is agreeable to proceed.
[2025-02-08 07:48] VITALS: BP 124/72; PULSE 75; RESP 16; O2SAT 97
--- NOTE | 2025-02-08 07:49 | S_PTH ---
PATIENT: Navid Rand LOC: [facility] U#:[id number] AGE/SX: 64/M ROOM: RE02/08/[address]: Sanju Aponte DO : 1960 BED: DIS: 02/08/2025 SPEC #: [id number] RECD: 02/08/25 09:07 STATUS: SAUNDRA RE #: [id number] [place]: 02/08/25 07:[address]: Sanju Aponte DEPT: [facility] Surgical RECD BY: Geena Lua ENTERED: 02/08/25 09:07 SP TYPE: Surgical OTHR DR: Stephanie Echeverria MD Tissues: A - Colon Polypectomy Procedures: Hematoxylin and Eosin Stain Gross and Microscopic Level 4
[2025-02-08 07:58] VITALS: BP 122/74; PULSE 69; RESP 19; O2SAT 97
[2025-02-08 08:08] VITALS: BP 124/78; PULSE 65; RESP 18; O2SAT 98
== END 2025-02-08 08:19 | disposition home or self-care (01) ==
PROVIDERS: PCP Internal Medicine; Visit Provider Surgery
PROC: 0DJD8ZZ Inspection of Lower Intestinal Tract, Via Natural or Artificial Opening Endoscopic (ICD-10-PCS; CPT 45378; principal; 2025-02-08 07:30)
DX: Z12.11 Encounter for screening for malignant neoplasm of colon (principal); D12.3 Benign neoplasm of transverse colon; E11.9 Type 2 diabetes mellitus without complications; Z87.891 Personal history of nicotine dependence; E66.01 Morbid (severe) obesity due to excess calories; Z68.41 Body mass index [BMI] 40.0-44.9, adult
CPT/HCPCS: 45385; 82948; 88305; J2704; J7120